=== PATIENT | female | born 1940 | race Caucasian/White ===

== ENCOUNTER 2016-11-24 23:20 | Inpatient (IN) | payer MEDICARE, OTHER ==
[~2016-11-24] VITALS: Ht 165.1 cm; Wt 84.6 kg
[~2016-11-24 23:20] MED LIST: ALLERGY10 MG PO; BENADRYL25 MG PO; CALCIUM + D 6001 TAB PO; COLACE 100100 MG/CAP PO; COQ10150 MG PO; DRAMAMINE50 M1 PO; EPIPEN1 MG/ML MR; GABAPENTIN TAB600 MG PO; GINKGO PO; IMDUR60 MG PO; IRON METAL1 POW; LEVOTHYROXINE0.05 MG PO; LOVASTATIN40 MG PO; MIRAPEX 1MG PO; MULTIVITAMIN CH1 CT1 PO; NATURAL E400 IU PO; NIFEDIPINE30 MG PO; NITROQUICK0.4 MG SL; OMEGA 31000 MG PO; TOPCARE ASPIRI325 MG PO; TYLENOL EXTRA500 M1 PO; ULTRAM 50MG TAB50 MG; VENTOLIN0.09 MG IH
[2016-11-24 23:59] VITALS: O2SAT 96
[2016-11-25] VITALS (369 sets, daily range): BP systolic 126–157; BP diastolic 81–96; PULSE 59–82; TEMP 97.9–98.2; O2SAT 88–100
[2016-11-25] MEDS ORDERED: ADALAT CC90 MG PO (00:31)
[2016-11-25] MEDS ORDERED: ISOSORBIDE MON120 MG PO (00:32)
[2016-11-25 01:02] LABS: ADJUSTED CALCIUM 9.1 mg/dL (8.4-10.2); BILIRUBIN,TOTAL 0.6 mg/dL (0.0-1.0); CALCIUM 9.1 mg/dL (8.4-10.2); CREATININE, serum 0.45 mg/dL (0.52-1.25); POTASSIUM 3.6 mmol/L (3.4-5.0)
[2016-11-25 01:15] LABS: TROPONIN-I 0.179 ng/mL (0.000-0.034)
[2016-11-25 10:35] LABS: BASO % 0.5 % (0.0-2.0); EOS # 0.1 (0.0-0.7); EOS % 1.4 % (0-4.0); GRAN # 3.6 (1.4-6.5); GRAN % 62.1 % (42.2-75.2); HEMATOCRIT 40.8 % (37.0-47.0); HEMOGLOBIN 13.6 g/dl (12.5-16.0); LYMPH # 1.7 (1.2-3.4); LYMPH % 28.5 % (20.0-51.0); MEAN CELL VOLUME 94 fl (80.0-100.0); MEAN CORPUSCULAR HEMOGLOBIN 31 pg (27.0-31.0); MEAN CORPUSCULAR HGB CONC 33 g/dl (33.0-37.0); MEAN PLATELET VOLUME 11.1 fl (7.4-10.4); MONO # 0.4 (0.1-0.6); MONO % 7.2 % (1.7-9.3); PLATELET COUNT 197 K/mm3 (130-400); RED BLOOD COUNT 4.36 M/mm3 (4.10-5.30); REDCELL DISTRIBUTION WIDTH-CV 14.2 % (11.5-14.5); WHITE BLOOD COUNT 5.8 K/mm3 (4.8-10.8)
[2016-11-25 10:37] LABS: INR 1.1 (0.8-3.0); PROTHROMBIN TIME 12.5 SECONDS (9.7-12.8)
== END 2016-11-25 12:45 | disposition short-term general hospital (02) | DRG 282 ==
LOC: IMCU 23:20 → ICU 23:43
PROVIDERS: Internal Medicine; Internal Medicine Cardiovascular Disease
PROC: B2111ZZ Fluoroscopy of Multiple Coronary Arteries using Low Osmolar Contrast (ICD-10-PCS; principal; 2016-11-25)
DX: I21.4 Non-ST elevation (NSTEMI) myocardial infarction (principal); I10 Essential (primary) hypertension; J44.9 Chronic obstructive pulmonary disease, unspecified; I25.10 Atherosclerotic heart disease of native coronary artery without angina pectoris; Z95.5 Presence of coronary angioplasty implant and graft
CPT/HCPCS: 99223-AI; 99239; C1760; J2250; J2270; J2405; J3010; J3480; J7030; Q9967

== ENCOUNTER 2020-05-03 05:50 | Day surgery (SDC) | payer MEDICARE, OTHER ==
[2020-05-03] VITALS (12 sets, daily range): BP systolic 99–137; BP diastolic 60–86; PULSE 58–87; TEMP 97.4–98.3
[~2020-05-03] VITALS: Ht 165.1 cm; Wt 86.3 kg
[~2020-05-03 05:50] MED LIST changes: +ADALAT CC90 MG PO; +ISOSORBIDE MON120 MG PO
[2020-05-03] MEDS ORDERED: NORCO 325 MG-51 TAB PO (07:06)
--- NOTE | 2020-05-03 07:42 | NUR ---
PT TO SURGERY PER BED AT THIS TIME. PRE OP MEDS GIVEN ORDERED. T&S OBTAINED BY LAB. IV ATTEMPT UNSUCESSFUL TO LEFT HAND.
--- NOTE | 2020-05-03 11:36 | NUR ---
PT TO ROOM 331 PER BED WITH REPORT FROM [email or web address]. PT IS A/O X3, LUNGS CTA, BOWEL SOUNDS PRESENT. IV TO PUMP PER ORDERS. TECHNOL BRACE INPLACE OVER SURGICAL SITE WITH SANTO WRAP OVER BULKY DRESSINGSL IV TO PUMP PER ORDERS. SCDS PLACED BILATERALLY.
--- NOTE | 2020-05-03 14:13 | NUR ---
PT VOIDED 250 MLS CLEAR YELLOW URINE.
--- NOTE | 2020-05-03 16:10 | NUR ---
Spool Winder met with patient to discuss discharge planning. Patient reports she [place] in [place] with her , Jim ([phone]) and has a lot of family support near her. Patient sees Dr. Bourgeois at [facility] for primary care and obtains medications from [facility] in [place] with no difficulties. Patient has a cane, rollator, and home oxygen from [facility]. Patient reports she is normally independent with ADLS and plans to return home at discharge. Patient has Advance Directives in EMR which designate her Jim as primary and Shanteermelinda LebronAndrew as secondary agent. SW will continue to follow as needed.
--- NOTE | 2020-05-03 21:00 | NUR ---
Pt. sitting up in bed at this time. Pt. is A&OX3, assessment complete. INT to lt. hand patent. Pt. rates pain at a 4 on pain scale, will give pain meds per orders. Dressing to rt. knee CDI. Pt. denies further needs, call light within reach.
[2020-05-03] MEDS ORDERED: NORCO 325 MG-7.1 TAB PO (21:45)
[2020-05-03] MEDS ORDERED: ASPI325T6 PO (21:45)
[2020-05-04 00:17] VITALS: BP 105/55; PULSE 73; TEMP 97.9
[2020-05-04 04:45] VITALS: BP 11/70; BP 111/70; PULSE 64; TEMP 97.6
--- NOTE | 2020-05-04 08:00 | NUR ---
PATIENT IS A&O. VSS. RATES PAIN IN RLE AT 4-5 ON PAIN SCALE WITH ACTIVITY. GAVE PRN ULTRAM, TWO TABS BEFORE AM THERAPY. RTK DRESSING IS CD&I WITH POST OPERATIVE ACEWRAP AND ICE PACK INPLACE. TEDS TO LLE. SCD'S TO BLE CURRENTLY OFF. POSITIVE PEDAL PULSES TO BLE. PATIENT IS EAT/DRINK/VOIDING SUFFICENT AMOUNTS. NO C/O N/V. LEFT HAND IV TO INT. HEAD TO TOE ASSESSMENT WNL. PATIENT PLANNING ON DISCHARGING HOME LATER TODAY. NO OTHER NEEDS. CALL LIGHT IN REACH.
[2020-05-04 08:15] LABS: HEMATOCRIT 27.7 % (37.0-47.0); HEMOGLOBIN 9.1 g/dl (12.5-16.0)
[2020-05-04 08:25] VITALS: BP 97/54; PULSE 82; TEMP 97.8
[2020-05-04 11:22] VITALS: BP 105/58; PULSE 86; TEMP 97.8
--- NOTE | 2020-05-04 16:06 | NUR ---
PATIENT DISCHARGING HOME VIA WC TO PERSONAL VEHICLE WITH DAUGHTER. GAVE DISCHARGE INSTRUCTIONS, PRESCRIPTION, AND F/U APTS. ANSWERED ALL QUESTIONS/CONCERNS. DC'D LEFT HAND IV, COVERED SITE WITH COMFORTE & COBSIS. SENT PERSONAL BELONGINGS WITH DAUGHTER. PATIENT ESCORTED OUT.
== END 2020-05-04 16:09 | disposition home or self-care (01) ==
LOC: JCC 05:50 → SDCO 05:50 → JCC 05:51 → EDSTATUS 09:45 → JCC 09:45 → SDCO 05-04 16:09
PROVIDERS: Physician Assistant
DX: M17.11 Unilateral primary osteoarthritis, right knee (principal); Z20.828 Contact with and (suspected) exposure to other viral communicable diseases; Z79.82 Long term (current) use of aspirin; Z79.899 Other long term (current) drug therapy; Z79.02 Long term (current) use of antithrombotics/antiplatelets; Z88.5 Allergy status to narcotic agent; Z88.1 Allergy status to other antibiotic agents; Z91.030 Bee allergy status; Z88.0 Allergy status to penicillin; Z88.8 Allergy status to other drugs, medicaments and biological substances; E78.00 Pure hypercholesterolemia, unspecified; M81.0 Age-related osteoporosis without current pathological fracture; F41.9 Anxiety disorder, unspecified; J44.9 Chronic obstructive pulmonary disease, unspecified; E78.5 Hyperlipidemia, unspecified; Z99.81 Dependence on supplemental oxygen; E03.9 Hypothyroidism, unspecified; M19.90 Unspecified osteoarthritis, unspecified site
CPT/HCPCS: OP; A9284; C1713; C1776; J0690; J1100; J1885; J2250; J2274; J2405; J2704; J7120; L1830

== ENCOUNTER 2023-10-16 09:39 | Day surgery (SDC) | payer MEDICARE, OTHER ==
[~2023-10-16] VITALS: Ht 162.6 cm; Wt 81.6 kg
[~2023-10-16 09:39] MED LIST changes: +ALDACTONE 25MG25 M1 PO; +ASPI325T6 PO; +ASPIRIN 81M81 MG/TA2 PO; +ATROVENT I0.2 MG/1 M IH; +CALCIUM WITH D31 CTB; +CRESTOR5 MG PO; +LR 1,000 ML IV SCH; +NEURONTIN600 MG/TAB PO; +NORCO 325 MG-51 TAB PO; +NORCO 325 MG-7.1 TAB PO; +OMEGA-31 SGL PO; +Ondansetron 4 MG/2 ML VIAL IV PRN; +PLAVIX 75MG TAB75 MG PO; +PROCARDIA XL 6060 MG PO; +SOMA 350MG350 MG/TAB PO; +SYNTHROID0.1 MG/TAB PO; +THEO-24400 MG PO; +TOPROL XL 25MG25 MG PO; +TYLENOL 500MG500 MG; +TYLENOL 500MG500 MG PO; +VITAMIN D31000 I1 PO
[2023-10-16 10:59] VITALS: BP 154/77; PULSE 65; TEMP 97.1
[2023-10-16] MEDS ORDERED: EPIPEN 2-PAK1 MG/ML IM (11:29)
[2023-10-16] MEDS ORDERED: NITROSTAT0.3 MG SL (11:36)
[2023-10-16] MEDS ORDERED: Lidocaine PF 2% (20 MG/ML) 5 ML VIAL ONE (11:39)
[2023-10-16] MEDS ORDERED: BENADRYL50 MG PO (11:43)
[2023-10-16] MEDS ORDERED: CLARITIN 1010 MG/TAB PO (11:43)
[2023-10-16] MEDS ORDERED: ULTRAM 50MG TAB50 MG PO (11:44)
[2023-10-16] MEDS ORDERED: PROAIR HFA0.09 MG/AC IH (11:45)
[2023-10-16] MEDS ORDERED: TEMOVATE0.05% TP (11:45)
[2023-10-16 12:05] VITALS: BP 126/85; PULSE 60; TEMP 97.1
[2023-10-16 12:20] VITALS: BP 124/83; PULSE 60
[2023-10-16 12:35] VITALS: BP 118/80; PULSE 60
--- NOTE | 2023-10-16 12:40 | NUR ---
1205 RETURNS TO ROOM 9 PER CART. AWAKE, ALERT. RESP UNLABORED. AMBULATES TO RECLINER WITH STANDBY ASSIST. O2 AT 2L/NC AT HOME. DENIES NAUSEA, ABD/CHEST PAIN OR DYSPHAGIA. VITAL SIGNS OBTAINED. DAUGHTER AND GRANDAUGHTER HERE 1220 TOLERATES PO WATER AND JUICE WITHOUT NAUSEA. SWALLOWS WITHOUT DIFFICULTY. DISCHARGE INSTRUCTIONS REVIEWED. PATIENT AND FAMILY VERBALIZE UNDERSTANDING. COPY PROVIDED IN DISCHARGE FOLDER 1225 DR. GARVEY HERE TO VISIT WITH PATIENT 1235 DRESSES SELF
== END 2023-10-16 12:40 | disposition home or self-care (01) ==
LOC: SDCO 09:39
DX: K21.9 Gastro-esophageal reflux disease without esophagitis (principal); K22.2 Esophageal obstruction; J44.9 Chronic obstructive pulmonary disease, unspecified
CPT/HCPCS: C1726; J2704; J7120